=== PATIENT | female | born 1995 | race Caucasian/White ===

== ENCOUNTER 2020-09-22 09:29 | Outpatient (REF) | payer OTHER, SELFPAY ==
[2020-09-22 10:16] LABS: MANUAL DIFF FLAG NO
[2020-09-22 10:19] LABS: Basophils Percent Auto 0.8 % (0-2); Eosinophils Percent Auto 0.6 % (0-4); Hematocrit 39.5 % (37-47); Hemoglobin 13.1 g/dl (12.0-16.0); Imm Gran Abs Auto 0.01 X10*3/uL (0.00-0.03); Imm Gran Pct Auto 0.2 % (0.0-0.4); Lymphocytes Absolute Auto 1.7 X10*3/uL (1.2-4.9); Lymphocytes Percent Auto 32.2 % (20-40); Mean Corpuscular HGB Conc 33.2 g/dl (31.0-35.0); Mean Corpuscular Hemoglobin 29.9 pg (27.0-33.0); Mean Corpuscular Volume 90.2 fL (80-98); Mean Platelet Volume 10.6 fL (9.4-12.3); Monocytes Absolute Auto 0.4 X10*3/uL (0.1-1.2); Monocytes Percent Auto 7.7 % (2-11); Neutrophils Absolute Auto 3.1 X10*3/uL (2.0-8.3); Neutrophils Percent Auto 58.5 % (45-73); Platelet Count 259 X10*3/uL (160-400); Red Blood Count 4.38 X10*6/uL (4.20-5.50); Red Cell Distribution Width 12.1 % (11.0-16.0); White Blood Count 5.2 X10*3/uL (4.8-10.8)
[2020-09-22 10:42] LABS: Alanine Aminotransferase 61 U/L (0-31); Albumin Level 4.3 g/dL (3.5-5.0); Alkaline Phosphatase 78 U/L (39-117); Anion Gap 11 (12-20); Aspartate Amino Transferase 104 U/L (5-31); Bilirubin Total 0.4 mg/dL (0.0-1.0); Blood Urea Nitrogen 16 mg/dL (9-16); Calcium 9.6 mg/dL (8.4-10.2); Carbon Dioxide 24 mmol/L (22-29); Chloride 106 mmol/L (96-108); Estimated Glomerular Filt Rate > 60; Glucose Random 78 mg/dL (60-115); Sodium 137 mmol/L (135-145); Total Protein 6.9 g/dL (6.5-8.0)
[2020-09-22 11:06] LABS: Erythrocyte Sedimentation Rate 10 MM/HR (0-20)
[2020-09-23 22:03] LABS: Complement C3 82 mg/dL (83-193)
[2020-09-23 22:46] LABS: Prot Elec - Alpha1 0.3 g/dL (0.2-0.3); Prot Elec - Alpha2 0.8 g/dL (0.5-0.9); Prot Elec - Beta 1 0.4 g/dL (0.4-0.6); Prot Elec - Beta 2 0.3 g/dL (0.2-0.5); Prot Elec - Gamma 0.9 g/dL (0.8-1.7); Prot Elec - Total Protein 6.6 g/dL (6.1-8.1)
[2020-09-23 23:12] LABS: Immunoglobulin E 29 kU/L (<OR=114)
[2020-09-26 14:17] LABS: Transglutaminase IgA 1 U/mL
[2020-09-26 21:32] LABS: C1 Esterase Inhibitor 84 % (>=68)
[2020-09-26 22:22] LABS: Gliadin Deamidated IgA Ab 3 Units; Gliadin Deamidated IgG Ab 2 Units
== END 2020-09-22 09:30 | disposition home or self-care (01) ==
LOC: HO.LAB 09:29
PROVIDERS: PCP Hospitalist; Visit Provider Allergy & Immunology
DX: T78.3XXA Angioneurotic edema, initial encounter (principal)
CPT/HCPCS: 36415; 80053; 82785; 83516; 83520; 84155; 84165; 85025; 85652; 86160; 86161

== ENCOUNTER 2020-11-17 10:00 | Outpatient (REF) | payer OTHER, SELFPAY ==
[2020-11-17 11:37] LABS: Alanine Aminotransferase 40 U/L (0-31); Albumin Level 4.3 g/dL (3.5-5.0); Alkaline Phosphatase 69 U/L (39-117); Anion Gap 11 (12-20); Aspartate Amino Transferase 48 U/L (5-31); Bilirubin Total 0.4 mg/dL (0.0-1.0); Blood Urea Nitrogen 12 mg/dL (9-16); Calcium 9.7 mg/dL (8.4-10.2); Carbon Dioxide 25 mmol/L (22-29); Chloride 107 mmol/L (96-108); Estimated Glomerular Filt Rate > 60; Glucose Random 90 mg/dL (60-115); Potassium 4.4 mmol/L (3.3-5.1); Sodium 139 mmol/L (135-145); Total Protein 7.1 g/dL (6.5-8.0)
[2020-11-18 18:01] LABS: Immunoglobulin E 27 kU/L (<OR=114)
== END 2020-11-17 10:01 | disposition home or self-care (01) ==
LOC: HO.LAB 10:00
PROVIDERS: PCP Hospitalist; Visit Provider Allergy & Immunology
DX: T78.3XXA Angioneurotic edema, initial encounter (principal); T78.1XXA Other adverse food reactions, not elsewhere classified, initial encounter
CPT/HCPCS: 36415; 80053; 82785; 86003

== ENCOUNTER 2021-04-29 07:54 | Outpatient (REF) | payer OTHER, SELFPAY ==
[2021-04-29 08:38] LABS: Alanine Aminotransferase 39 U/L (0-31); Albumin Level 4.2 g/dL (3.5-5.0); Alkaline Phosphatase 64 U/L (39-117); Anion Gap 11 (12-20); Aspartate Amino Transferase 33 U/L (5-31); Bilirubin Total 0.7 mg/dL (0.0-1.0); Blood Urea Nitrogen 16 mg/dL (9-16); Calcium 9.7 mg/dL (8.4-10.2); Carbon Dioxide 25 mmol/L (22-29); Chloride 105 mmol/L (96-108); Estimated Glomerular Filt Rate > 60; Glucose Random 92 mg/dL (60-115); Potassium 4.1 mmol/L (3.3-5.1); Sodium 137 mmol/L (135-145); Total Protein 7.3 g/dL (6.5-8.0)
== END 2021-04-29 07:55 | disposition home or self-care (01) ==
LOC: HO.LAB 07:54
PROVIDERS: PCP Hospitalist; Visit Provider Hospitalist
DX: R74.8 Abnormal levels of other serum enzymes (principal)
CPT/HCPCS: 36415; 80053

== ENCOUNTER 2022-12-11 11:22 | Outpatient (AMB) | payer OTHER, SELFPAY ==
--- NOTE | 2022-12-11 11:49 | AM.OFFWIN_ITS ---
Intake Vital Signs 12/11/22 11:55 Weight 82.1 kg BP 120/80 Blood Pressure Location Lt brachial Position Sitting Pulse 93 Pulse Source Pulse Oximeter Temp 97.4 F Temp Source Temporal Artery Scan Pulse Oximetry (%) 100 Oxygen Delivery Method Room Air Intake Visit Reasons: EP, sore throat,cough,fatigue [phone] Intake Note: Patient here for sore throat, productive cough, congestion for about 3 days. Patient Tobacco Use Status: Never used Tobacco Allergies No Known Allergies Allergy (Verified 12/11/22 11:50) Do you need a note to return to daycare/school/sports/work: No HPI HPI Comments 2 History of Present Illness Details 1203 27-year-old female presents with fatigue, malaise, myalgias, sore throat, productive cough of thick yellow sputum going on for past 3 days, no known sick contacts. Denies chest pain, nausea, vomiting, abdominal pain, fevers, chills, headache, vision changes in dizziness. Physical exam benign Concerns for viral illness versus sinusitis versus bronchitis. Unlikely PE, pneumonia, peritonsillar retropharyngeal abscess, strep. No signs of threatened airway Plan steroids, inhaler, Augmentin. Educated patient on diagnosis and treatment plan, answered all question, patient verbalizes understanding. At this time patient will be discharged home, advised to return with new or worsening symptoms. Educated on worrisome signs and symptoms and when to return. At this time I feel comfortable discharge home. [facility] Medical History No pertinent past medical history Surgical History No pertinent past surgical history Family History Mother No problems noted. Father No problems noted. Social History Household Members: Spouse Housing: Apartment Alcohol intake: current Alcohol intake frequency: a few times a month Alcohol type: wine Patient Tobacco Use Status: Never used Tobacco Review of Systems Const Details: Constitutional : No Weight loss, No Fever, No Chills, + Fatigue, + Malaise ENT/Mouth : + sore throat, No Rhinorrhea Eyes: No Eye Pain, No Swelling, No Redness Cardiovascular : No Chest Pain, No SOB, No Dyspnea on Exertion, No Orthopnea, No Edema, No Palpitations Respiratory : + Cough, + Sputum, No Wheezing Gastrointestinal : No Nausea, No Vomiting, No Diarrhea, No Constipation, No abdominal Pain, No Hematochezia, No Melena Genitourinary : No Dysuria, No Urinary Frequency, No Hematuria, Musculoskeletal : No joint pain, No Myalgias, No Joint Swelling Skin : No Skin Lesions, No rash Neuro : No Weakness, No Numbness, No Dizziness, No Headache Psych : No Anxiety/Panic, No Depression All other systems reviewed and are negative All systems reviewed & are unremarkable except as noted in HPI and below Physical Exam Vital Signs: Last Vital Signs Temp 97.4 F 12/11/22 11:55 Pulse 93 12/11/22 11:55 BP 120/80 12/11/22 11:55 Pulse Ox 100 12/11/22 11:55 Oxygen Delivery Method Room Air 12/11/22 11:55 Vital signs stable Appearance: Alert.? Oriented X3.? No acute distress.? Head: Normocephalic, atraumatic, no step-offs or deformities Eyes: Pupils equal, round and reactive to light.? ENT: Pharynx normal.? Neck: Normal inspection.? Neck supple.? CVS: Normal heart rate and rhythm.? Pulses normal.? Respiratory: No respiratory distress.? Breath sounds normal.? Abdomen: Soft and nontender.? Skin: Skin warm and dry.? Normal skin color.? Normal skin turgor.? Extremities: No lower extremity edema.? No calf ttp. 5/5 strength to bilateral upper and lower extremities Neuro: Oriented X 3.? No motor deficit.? No sensory deficit. CN 2-12 intact Results AMB Rapid Strep AMB Rapid Strep Negative Last Edit by NI Griffin on 12/11/22 12:02 Results Reviewed Results Reviewed: Laboratory Last Values Strep Scn [facility] Negative 12/11/22 12:02 Assessment & Plan Assessment & Plan (1) Upper respiratory infection: Code(s): J06.9 - Acute upper respiratory infection, unspecified Plan Take your medications as prescribed. If you were prescribed antibiotics today, it is important that you take your medication to their entirety, do not skip any doses, do not finish them early. Follow-up with your primary care provider this week. Return to the emergency department with new or worsening symptoms. Such as fevers, chills, chest pain, shortness of breath, nausea, vomiting, dizziness, headache, vision changes, lethargy In case of emergency call 911 Orders: Orders BinaxNOW Covid-19 Ag Today J06.9 - Acute upper respiratory infection, unspecified AMB Rapid Strep Screen Today Z13.9 - Encounter for screening, unspecified Medications: New amoxicillin-pot clavulanate 875-125 mg 1 tab PO BID 20 tabs 0RF 10 days prednisone 20 mg PO DAILY 5 tabs 0RF 5 days albuterol sulfate 90 mcg/actuation 2 puffs inhalation Q6H PRN 6.7 grams 0RF shortness of breath or wheezing Coding Level of Care Code Est Pt Level 3 (70504) Diagnoses Upper respiratory infection J06.9
[2022-12-11 11:55] VITALS: BP 120/80; PULSE 93; TEMP 36.3; O2SAT 100
== END 2022-12-11 12:35 | disposition home or self-care (01) ==
PROVIDERS: PCP Hospitalist; Visit Provider Physician Assistant
DX: J06.9 Acute upper respiratory infection, unspecified (principal); J02.9 Acute pharyngitis, unspecified
CPT/HCPCS: 87880; 99213

== ENCOUNTER 2022-12-11 12:09 | Outpatient (REF) | payer OTHER, SELFPAY ==
[2022-12-11 12:29] LABS: Binax Now Covid-19 Ag Positive (Negative)
[2022-12-11 12:30] LABS: Binax Internal Control QC Valid; Binax Performed by: PAULP
== END 2022-12-11 12:10 | disposition home or self-care (01) ==
LOC: HO.HMGCLDS 12:09
PROVIDERS: PCP Hospitalist; Visit Provider Physician Assistant
DX: J06.9 Acute upper respiratory infection, unspecified (principal); Z20.822 Contact with and (suspected) exposure to COVID-19
CPT/HCPCS: 87811; C9803

== ENCOUNTER 2023-05-17 08:18 | Outpatient (AMB) | payer OTHER, SELFPAY ==
[2023-05-17 08:23] VITALS: BP 108/62; PULSE 82; O2SAT 97; BMI 32.9
--- NOTE | 2023-05-17 08:23 | A.OFFPC_ITS ---
Vital Signs 05/17/23 08:23 Height 5 ft 2 in Weight 180 lb BMI 32.9 BP 108/62 Blood Pressure Location Lt brachial Position Sitting Pulse 82 Pulse Source Pulse Oximeter Pulse Oximetry (%) 97 Oxygen Delivery Method Room Air Intake Visit Reasons: Transfer care/PE Intake Note: Patient is here for transfer of care, she has concern of muscle testing, would like to check iron and vitamin D. Allergies coconut Allergy (Severe, Uncoded 05/17/23 08:52) Anaphylaxis Tree nuts Allergy (Mild, Uncoded 05/17/23 08:52) tonsil swelling Medication List - Last Reconciled 05/17/23 by Maria Del Carmen Alicea, BI TECHNICAL LEAD- albuterol sulfate 90 mcg/actuation 2 puffs inhalation Q6H PRN epinephrine (EpiPen 2-Raza) 0.3 mg (0.3 mL) IM Q10M PRN 30 days prednisone 20 mg PO DAILY 5 days Tobacco use date assessed: 05/17/23 Dental Screening Dental Screen Date: 05/17/23 Did you have a dental visit in the last 12 months?: Yes Did you have a dental problem in the last 6 months where you did not have access to dental care?: No Was dental information given to patient?: Patient has dentist HPI HPI Comments History of Present Illness Details [age] old with elevated CPK, LFTs, Aldolase and low C3 complement, 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 Need referral Immunizations: UTD Derm - has a mole on back that she is worried about; bilat grandfather with skin cancer. Referral placed today Dental care - routine Eyes - no issues Diet - stable Mood - reports anxiety r/t job in the past, now resolved. Work as OT at [employer] Family hx: Mom alive pericarditis, DM2 Dad alive and well Siblings older sister w/ crohns, no other issues PGM and PGF both of cancer MGM - aneurysm, cardiac MGF unsure Here today for CPE Doing quite. She reports that she be referred to Rheumatology in the past were muscle biopsy was done to evaluate the elevated CPK, elevated aldolase, low C3 complement. Reports that the muscle biopsy was normal; mentioned a myopathy being the cause; she was then referred to [place] for genetics. However [facility] and therefore the referral never took place. When she works out to her she feels really sick for 1 week like she can not do anything. She is interested in a [place] [facility] [place] further evaluation [facility] Medical History No pertinent past medical history Surgical History No pertinent past surgical history Family History Mother No problems noted. Father No problems noted. Social History Household Members: Spouse Housing: Apartment Alcohol intake: current Alcohol intake frequency: a few times a month Alcohol type: wine Patient Tobacco Use Status: Never used Tobacco e-Cigarette/Vaping Use: Never Used service: No Current occupational status: employed Current occupation: occupational therapist Cognitive needs: No Hearing needs: No Vision needs: No Questionnaire PHQ-9 Over the last 2 weeks, how often have you been bothered by any of the following problems? 1. Little interest or pleasure in doing things: not at all 2. Feeling down, depressed, or hopeless: not at all 3. Trouble falling or staying asleep, or sleeping too much: not at all 4. Feeling tired or having little energy: several days 5. Poor appetite or overeating: not at all 6. Feeling bad about yourself - or that you are a failure or have let yourself or your family down: not at all 7. Trouble concentrating on things, such as reading the newspaper or watching television: not at all 8. Moving or speaking so slowly that other people could have noticed. Or the opposite - being so fidgety or restless that you have been moving around a lot more than usual: not at all 9. Thoughts that you would be better off or of hurting yourself in some way: not at all Total score: 1 Depression Screening Interpretation: Negative Depression Screening Done: Yes 97551 - PHQ-9 Billing: Yes Source: Developed by Drs. Fransisco Alcantar, Brent Miranda and colleagues, with an educational jacobo from [employer]. Thrive Questionnaire Date Thrive assessed: 05/17/23 I am a: Patient What is your living situation today?: I have a steady place to live Within the past 12 months, did the food you bought not last and you didn't have the money to get more?: Never true Within the past 12 months, did you worry whether your food would run out before you got money to buy more?: Never true Do you have trouble paying for medicines?: No Do you have trouble getting transportation to medical appointments?: No Do you have trouble paying your heating and electricity bill?: No Do you have trouble taking care of your child, family member or friend?: No Do you have trouble with day-to-day activities such as bathing, preparing meals, shopping, managing finances, etc.?: No Are you currently unemployed and looking for a job?: No Are you interested in more education?: No Please select the resources that you would like help with: None Currently or been in a relationship where the following occur: no concerns reported THRIVE Score: 0 AUDIT C Alcohol Use Questionnaire (AUDIT-C) 1. How often do you have a drink containing alcohol?: Monthly or less 2. How many drinks containing alcohol do you have on a typical day when you are drinking?: 1 or 2 3. How often do you have six or more drinks on one occasion?: Never Total Score: 1 Score Reviewed/Action Taken: No EVELIA-7 AMB Questionnaire EVELIA-7 Date EVELIA - 7 assessed: 05/17/23 Feeling nervous, anxious, or on edge: 0 = Not at all Not being able to stop or control worryin = Not at all Worrying too much about different things: 0 = Not at all Trouble relaxin = Not at all Being so restless that it is hard to sit still: 0 = Not at all Becoming easily annoyed or irritable: 0 = Not at all Feeling afraid as if something awful might happen: 0 = Not at all Total EVELIA-7 score (0-4 normal; 5-9 mild; 10-14 moderate; 15-21 severe): 0 Source: Developed by Whit Nina Kurt Kroenke and colleagues, with an educational jacobo from [employer]. EVELIA-7 Assessment Billing EVELIA-7 Assessment Tool: EVELIA-7 Assessment 77935 Review of Systems Const Details: Constitutional: [Denies} fever. Skin: Denies rash. Eye: Denies eye pain. ENMT: Denies sore throat and nasal congestion. Respiratory: Denies shortness of breath and cough. Gastrointestinal: Denies nausea, vomiting or abdominal pain. Cardiovascular: Denies chest pain and syncope. Genitourinary: Denies dysuria. Musculoskeletal: Denies back pain and extremity pain. Neurologic: Denies headaches, confusion, and weakness. Psychiatric: Denies suicidal thoughts and substance abuse. Allergy/ Immunologic: Denies impaired immunity. Physical exam (Primary Care) Vital Signs: Last Vital Signs Pulse 82 05/17/23 08:23 BP 108/62 05/17/23 08:23 Pulse Ox 97 05/17/23 08:23 Oxygen Delivery Method Room Air 05/17/23 08:23 BMI result Body Mass Index 32.9 Tobacco/Smoking Status: Tobacco use Status Tobacco use date assessed 05/17/23 05/17/23 08:34 Patient Tobacco Use Status Never used Tobacco 05/17/23 08:34 e-Cigarette/Vaping Use Never Used 05/17/23 08:34 PHQ-9: PHQ-9 Score PHQ-9: Total score 1 05/17/23 13:23 Depression Screening Interpretation: Negative Thrive Assessment: Date of Thrive Assessment Date Thrive assessed 05/17/23 05/17/23 08:34 Currently or been in a relationship where the following occur: no concerns reported Const Other: General: Well developed, well nourished, in no acute distress. Appears stated age. Head: Normocephalic, atraumatic. Eyes: Pupils are equal, round and reactive to light and accommodation. Conjunctivae are clear. Vision grossly normal. Ears: TMs clear AU, EACS WNL Nose: Patent, without discharge. Mouth: There are no ulcers or lesions noted. No inflammation, no post nasal drip, no plaques nor exudates. Neck: Supple, no adenopathy or thyromegaly. Lungs: Clear to auscultation bilaterally. No rales, rhonchi or wheeze noted. Good air flow in all uribe. Heart: Regular rate and rhythm. No murmurs, click, rubs or gallops are noted. Abdomen: Bowel sounds present in all quadrants. The abdomen is soft, nontender, with no masses or organomegaly noted. No hernias are noted. Musculoskeletal: Joints are nontender, without swelling, redness, or effusions. Range of motion is observed to be normal. Pulses: Peripheral pulses are equal and palpable bilaterally. Extremities: No clubbing, cyanosis nor edema is noted. Neurologic: Gait and station normal. Cranial Nerves 2-12 intact. Motor strength grossly symmetrical and intact. No sensory loss. Balance normal. Skin: No rashes, ulcers, or lesions noted. Turgor is good. Skin color is good. Hair and nails are without abnormalities. Psych: Normal eye contact, affect and mood appropriate, and normal interactions. Patient is alert and appropriate to context. Extremities: No clubbing, cyanosis or edema. Assessment and Plan Assessment & Plan (1) Physical exam, annual: Code(s): Z00.00 - Encounter for general adult medical examination without abnormal findings Plan: Health screenings for women ages 18 to 39 You should visit your health care provider from time to time, even if you are healthy. The purpose of these visits is to: Screen for medical issues Assess your risk for future medical problems Encourage a healthy lifestyle Update vaccinations and other preventive care services Help you get to know your provider in case of an illness Information Even if you feel fine, you should still see your provider for regular checkups. These visits can help you avoid problems in the future. For example, the only way to find out if you have high blood pressure is to have it checked regularly. High blood sugar and high cholesterol levels also may not have any symptoms in the early stages. A simple blood test can check for these conditions. There are specific times when you should see your provider or receive specific health screenings. The [place] Preventive Services Task Force publishes a list of recommended screenings. Below are screening guidelines for women ages 18 to 39. BLOOD PRESSURE SCREENING Your blood pressure should be checked at least once every 3 to 5 years if: Your blood pressure is in the normal range (top number less than 120 mm Hg and bottom number less than 80 mm Hg) You don't have risk factors for high blood pressure Ask your provider if you need your blood pressure checked more often if: The top number is 120 to 129 mm Hg or the bottom number is 70 to 79 mm Hg You have diabetes, heart disease, kidney problems, are overweight, or have certain other health conditions You have a first-degree relative with high blood pressure You are Black You had high blood pressure during a If the top number is 130 mm Hg or greater or the bottom number is 80 mm Hg or greater, this is considered stage 1 hypertension. Schedule an appointment with your provider to learn how you can reduce your blood pressure. Watch for blood pressure screenings in your area. Ask your provider if you can stop in to have your blood pressure checked. BREAST CANCER SCREENING Experts do not agree about the benefits of breast self-exams in finding breast cancer or saving lives. Talk to your provider about what is best for you. A screening mammogram is not recommended for most women under age 40. Your provider may discuss and recommend mammograms, MRI scans, or ultrasounds if you have an increased risk for breast cancer, such as: A mother or sister who had breast cancer at a young age (most often starting s creening earlier than the age the close relative was diagnosed) You carry a high-risk genetic marker CERVICAL CANCER SCREENING Cervical cancer screening should start at age 21 years unless your provider advises otherwise. After the first test: Women ages 21 through 29 should have a Pap test every 3 years. Exoprts do not agree on whether HPV testing is recommended for this age group. Women ages 30 through 65 should be screened with either a Pap test every 3 years or the HPV test every 5 years or both tests every 5 years (called cotesting ). Women who have been treated for precancer (cervical dysplasia) should continue to have Pap tests for 20 years after treatment or until age 65, whichever is longer. If you have had your uterus and cervix removed (total hysterectomy), and you have not been diagnosed with cervical cancer or precancer (high grade cervical neoplasia), you do not need cervical cancer screening. CHOLESTEROL SCREENING Cholesterol screening should begin at: Age 45 for women with no known risk factors for coronary heart disease Age 20 for women with known risk factors for coronary heart disease Repeat cholesterol screening should take place: Every 5 years for women with normal cholesterol levels More often if changes occur in lifestyle (including weight gain and diet) More often if you have diabetes, heart disease, kidney problems, or certain other conditions DIABETES SCREENING You should be screened for diabetes starting at age 35 and then repeated every 3 years if you have no risk factors for diabetes. Screening may need to start earlier and be repeated more often if you have other risk factors for diabetes, such as: You have a first degree relative with diabetes. You are overweight or have obesity. You have high blood pressure, prediabetes, or a history of heart disease. Screening for diabetes should be done if you are planning to become and you are overweight and have other risk factors such as high blood pressure. DENTAL EXAM Go to the dentist once or twice every year for an exam and cleaning. Your dentist will evaluate if you need more frequent visits. EYE EXAM Have an eye exam every 5 to 10 years before age 40. If you have vision problems, have an eye exam every 2 years or more often if recommended by your provider. You should have an eye exam that includes an examination of your retina (back of your eye) at least every year if you have diabetes. IMMUNIZATIONS Commonly needed vaccines include: Flu shot: get one every year. COVID-19 vaccine: ask your provider what is best for you. Tetanus-diphtheria and acellular pertussis (Tdap) vaccine: have one at or after age 19 as one of your tetanus-diphtheria vaccines if you did not receive it as an adolescent. Tetanus-diphtheria: have a booster (or Tdap) every 10 years. Varicella vaccine: receive 2 doses if you never had chickenpox or the varicella vaccine. Hepatitis B vaccine: receive 2, 3, or 4 doses, depending on your exact circumstances. Measles, mumps, and rubella (MMR) vaccine: receive 1 to 2 doses if you are not already immune to MMR. Your provider can tell you if you are immune. Ask your provider about the human papillomavirus (HPV) vaccine if: You have not received the HPV vaccine in the past You have not completed the full vaccine series (you should catch up on this shot) Ask your provider if you should receive other immunizations if you have certain health problems that increase your risk for some diseases such as pneumonia. INFECTIOUS DISEASE SCREENING Women who are sexually active should be screened for chlamydia and gonorrhea up until age 25. Women 25 years and older should be screened for chlamydia and gonorrhea if at high risk. Screening for hepatitis C: All adults ages 18 to 79 should get a one-time test for hepatitis C. people should be screened at every . Screening for human immunodeficiency virus (HIV): All people ages 15 to 65 should get a one-time test for HIV. Depending on your lifestyle and medical history, you may also need to be screened for infections such as syphilis and HIV, as well as other infections. PHYSICAL EXAM All adults should visit their provider from time to time, even if they are healthy. The purpose of these visits is to: Screen for disease Assess your risk of future medical problems Encourage a healthy lifestyle Update your vaccinations and other preventive care services Maintain a relationship with a provider in case of an illness Your height, weight, and BMI should be checked at every exam. During your exam, your provider may ask you about: Depression and anxiety Diet and exercise Alcohol and tobacco use Safety issues, such as using seat belts, smoke detectors, and intimate partner violence Your medicines and risk for interactions SKIN SELF-EXAM Your provider may check your skin for signs of skin cancer, especially if you're at high risk, such as if you: Have had skin cancer before Have close relatives with skin cancer Have a weakened immune system OTHER SCREENING Talk with your provider about colon cancer screening if you have a strong family history of colon cancer or polyps, or if you have had inflammatory bowel disease or polyps yourself. Routine bone density screening of women under 40 is not recommended. (2) Pap smear for cervical cancer screening: Code(s): Z12.4 - Encounter for screening for malignant neoplasm of cervix (3) Laboratory tests ordered as part of a complete physical exam (CPE): Code(s): Z00.00 - Encounter for general adult medical examination without abnormal findings (4) Elevated liver enzymes: Code(s): R74.8 - Abnormal levels of other serum enzymes (5) Low serum complement C3: Code(s): R77.8 - Other specified abnormalities of plasma proteins (6) Elevated aldolase level: Code(s): R74.8 - Abnormal levels of other serum enzymes (7) Elevated CPK: Code(s): R74.8 - Abnormal levels of other serum enzymes Orders: Orders TSH reflex Free T4 Today R74.8 - Abnormal levels of other serum enzymes, R77.8 - Other specified abnormalities of plasma proteins, Z00.00 - Encounter for general adult medical examination without abnormal findings Comprehensive Gravity. Panel Fast Today R74.8 - Abnormal levels of other serum enzymes, R77.8 - Other specified abnormalities of plasma proteins, Z00.00 - Encounter for general adult medical examination without abnormal findings Lipid Panel Today R74.8 - Abnormal levels of other serum enzymes, R77.8 - Other specified abnormalities of plasma proteins, Z00.00 - Encounter for general adult medical examination without abnormal findings IRON PROFILE Today R74.8 - Abnormal levels of other serum enzymes, R77.8 - Other specified abnormalities of plasma proteins, Z00.00 - Encounter for general adult medical examination without abnormal findings Creatine Kinase Total Today R74.8 - Abnormal levels of other serum enzymes, R77.8 - Other specified abnormalities of plasma proteins, Z00.00 - Encounter for general adult medical examination without abnormal findings Complete Blood Count no Diff Today R74.8 - Abnormal levels of other serum enzymes, R77.8 - Other specified abnormalities of plasma proteins, Z00.00 - Encounter for general adult medical examination without abnormal findings Microalbumin, Random (w Creat) Today R74.8 - Abnormal levels of other serum en zymes, R77.8 - Other specified abnormalities of plasma proteins, Z00.00 - Encounter for general adult medical examination without abnormal findings Vitamin D 1,25 dihydroxy Today R74.8 - Abnormal levels of other serum enzymes, R77.8 - Other specified abnormalities of plasma proteins, Z00.00 - Encounter for general adult medical examination without abnormal findings Aldolase Today R74.8 - Abnormal levels of other serum enzymes, R77.8 - Other specified abnormalities of plasma proteins, Z00.00 - Encounter for general adult medical examination without abnormal findings Complement C3 Today R74.8 - Abnormal levels of other serum enzymes, R77.8 - Other specified abnormalities of plasma proteins, Z00.00 - Encounter for general adult medical examination without abnormal findings UA and rflx microscopic Today R74.8 - Abnormal levels of other serum enzymes, R77.8 - Other specified abnormalities of plasma proteins, Z00.00 - Encounter for general adult medical examination without abnormal findings Referrals [facility] [employer] [facility] Referral Z12.4 - Encounter for screening for malignant neoplasm of cervix Genetics Referral R74.8 - Abnormal levels of other serum enzymes, R77.8 - Other specified abnormalities of plasma proteins Dermatology Referral Z12.83 - Encounter for screening for malignant neoplasm of skin Medications: Refilled epinephrine (EpiPen 2-Raza) for 2 doses 0.3 mg (0.3 mL) IM Q10M PRN 2 ea 2RF anaphylaxis 30 days Coding Level of Care Code Est Pt Prev Care 18-39y(72175) Diagnoses Physical exam, annual Z00.00 Pap smear for cervical cancer screening Z12.4 Laboratory tests ordered as part of a complete physical exam (CPE) Z00.00 Elevated liver enzymes R74.8 Low serum complement C3 R77.8 Elevated aldolase level R74.8 Elevated CPK R74.8 Additional Codes EVELIA-7 Assessment Billing - EVELIA-7 Assessment Tool: EVELIA-7 Assessment [id number] ([id number])
== END 2023-05-17 09:13 | disposition home or self-care (01) ==
PROVIDERS: PCP Hospitalist; Visit Provider Nurse Practitioner Family
DX: Z00.00 Encounter for general adult medical examination without abnormal findings (principal); Z12.4 Encounter for screening for malignant neoplasm of cervix; R74.8 Abnormal levels of other serum enzymes; R77.8 Other specified abnormalities of plasma proteins
CPT/HCPCS: 99395

== ENCOUNTER 2023-05-31 07:02 | Outpatient (REF) | payer BC, SELFPAY ==
[2023-05-31 12:06] LABS: Hematocrit 40.5 % (37.0-47.0); Hemoglobin 13.1 g/dl (12.0-16.0); Mean Corpuscular HGB Conc 32.3 g/dl (31.0-35.0); Mean Corpuscular Volume 89.8 fL (80.0-98.0); Mean Platelet Volume 10.6 fL (9.4-12.3); Platelet Count 285 X10*3/uL (160-400); Red Blood Count 4.51 X10*6/uL (4.20-5.50); Red Cell Distribution Width 12.1 % (11.0-16.0)
[2023-05-31 12:07] LABS: Alanine Aminotransferase 43 U/L (0-31); Albumin Level 4.3 g/dL (3.5-5.0); Alkaline Phosphatase 62 U/L (39-117); Anion Gap 13 (12-20); Aspartate Amino Transferase 51 U/L (5-31); Bilirubin Total 0.3 mg/dL (0.0-1.0); Blood Urea Nitrogen 13 mg/dL (9-16); Calcium 9.5 mg/dL (8.4-10.2); Carbon Dioxide 26 mmol/L (22-29); Chloride 106 mmol/L (96-108); Cholesterol 168 mg/dL (<200); Estimated Glomerular Filt Rate > 60; Glucose Fasting 89 mg/dL (60-99); HDL Cholesterol 49 mg/dL (>40); Iron 67 mcg/dL (30-160); LDL Cholesterol Calculated 102 mg/dL (<100); Percent Iron Saturation 26 % (15-50); Potassium 3.8 mmol/L (3.3-5.1); Sodium 141 mmol/L (135-145); TSH reflex Free T4 1.55 uIU/mL (0.32-4.0); Total Iron Binding Capacity 255 mcg/dL (228-428); Total Protein 7.3 g/dL (6.5-8.0); Triglycerides 85 mg/dL (<150); Unsaturated Iron Binding 188 ug/dL
[2023-06-03 10:59] LABS: Complement C3 126 mg/dL (83-193)
[2023-06-05 06:12] LABS: Aldolase 35.3 U/L (<=8.1); VITAMIN D (1,25 OH) D3 40 pg/mL; Vit D (1,25-Dihydroxy) Total 50 pg/mL (18-72); Vitamin D (1,25 OH) D2 10 pg/mL
== END 2023-05-31 07:03 | disposition home or self-care (01) ==
LOC: HO.HMGCLDS 07:02
PROVIDERS: PCP Nurse Practitioner Family; Visit Provider Nurse Practitioner Family
DX: Z00.00 Encounter for general adult medical examination without abnormal findings (principal); R74.8 Abnormal levels of other serum enzymes; R77.8 Other specified abnormalities of plasma proteins
CPT/HCPCS: 36415; 80053; 80061; 82085; 82550; 82652; 83540; 84443; 85027; 86160

== ENCOUNTER 2024-05-18 07:53 | Outpatient (AMB) | payer OTHER, SELFPAY ==
--- NOTE | 2024-05-18 07:54 | A.OFFPC_ITS ---
Vital Signs 05/18/24 08:01 Height 5 ft 1 in Weight 169 lb 6 oz BMI 32.0 BP 118/62 Blood Pressure Location Lt brachial Position Sitting Pulse 65 Pulse Source Auscultation Pulse Oximetry (%) 99 Oxygen Delivery Method Room Air Intake Visit Reasons: PE Allergies coconut Allergy (Severe, Uncoded 05/18/24 07:55) Anaphylaxis Tree nuts Allergy (Mild, Uncoded 05/18/24 07:55) tonsil swelling Medication List - Last Reconciled 05/18/24 by Maria Del Carmen Alicea [facility] albuterol sulfate 90 mcg/actuation 2 puffs inhalation Q6H PRN epinephrine (EpiPen 2-Raza) 0.3 mg (0.3 mL) IM Q10M PRN 30 days Tobacco use date assessed: 05/18/24 Dental Screening Dental Screen Date: 05/18/24 Did you have a dental visit in the last 12 months?: Yes Was dental information given to patient?: Patient has dentist HPI HPI Comments History of Present Illness Details 28 y/o with with elevated CPK, LFTs, Ald olase and low C3 complement, 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 [facility] Immunizations: UTD, will get Flu today Derm - has a mole on back that she is worried about; bilat grandfather with skin cancer. Referral placed 05/2023 Dental care - routine Eyes - no issues Diet - stable Mood - no anxiety Work as OT Family hx: Mom alive pericarditis, DM2 Dad alive and well Siblings older sister w/ crohns, no other issues PGM and PGF both of cancer MGM - aneurysm, cardiac MGF unsure Surgery: muscle bx No hospital or ED visits Social: live w/ . The patient is a 28-year-old female presenting for CPE. 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 There has been a recent referral for additional diagnostic testing, including an electromyography (EMG) scheduled for June and genetic testing performed the previous week, although results are pending. Previous symptoms associated with the myopathy include exercise intolerance, which has seen improvement with the intake of Gatorade prior to physical activity. The patient reported having undergone a muscle biopsy in the past. ROS: - Integumentary: Denies new skin lesions . - Ophthalmologic: Denied vision problems or use of glasses. - Psychological: Reports improved mood; denies current feelings of anxiety or depression. - Respiratory: Denies daily inhaler use. Exam General: Well developed, well nourished, in no acute distress. Appears stated age. Head: Normocephalic, atraumatic. Eyes: Pupils are equal, round and reactive to light and accommodation. Conjunctivae are clear. Vision grossly normal. Ears: TMs clear AU, EACS WNL Nose: Patent, without discharge. Mouth: There are no ulcers or lesions noted. No inflammation, no post nasal drip, no plaques nor exudates. Neck: Supple, no adenopathy or thyromegaly. Lungs: Clear to auscultation bilaterally. No rales, rhonchi or wheeze noted. Good air flow in all uribe. Heart: Regular rate and rhythm. No murmurs, click, rubs or gallops are noted. Abdomen: Bowel sounds present in all quadrants. The abdomen is soft, nontender, with no masses or organomegaly noted. No hernias are noted. Musculoskeletal: Joints are nontender, without swelling, redness, or effusions. Range of motion is observed to be normal. Pulses: Peripheral pulses are equal and palpable bilaterally. Extremities: No clubbing, cyanosis nor edema is noted. Neurologic: Gait and station normal. Cranial Nerves 2-12 intact. Motor strength grossly symmetrical and intact. No sensory loss. Balance normal. Skin: No rashes, ulcers, or lesions noted. Turgor is good. Skin color is good. Hair and nails are without abnormalities. Psych: Normal eye contact, affect and mood appropriate, and normal interacti ons. Patient is alert and appropriate to context. 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 We talked about the effectiveness of pre-exercise Gatorade intake. I explained the need for regular monitoring of liver function due to past elevated enzyme levels. We reviewed the necessity of continuing her current inhaler regimen for asthma management. I advised the completion of her overdue Pap smear and emphasized the importance of dermatological evaluation given her family history. I discussed the administration of the flu shot today and encouraged her to continue self- monitoring for breast and skin changes. Defer labs today as some just done by [facility] [place]. Results n/a to me @ this time. Plan: - Continue monitoring metabolic myopathy ; pending EMG and genetic testing results. - Schedule referral and follow-up for Pa p smear as previous appointment was canceled. - Administer the influenza vaccine as ag nati. - Ensure dermatological consultation for mole assessment due to family history of skin cancer. - Monitor asthma; no changes in current medication as symptoms are currently well managed. - Continue anxiety management measures a s current screenings are negative. Patient was informed and verbally consented to the use of an ambient scribe for clinic note documentation during this visit. RTO 1 YEAR CPE, SOONER PRN PFSH Medical History No pertinent past medical history Surgical History No pertinent past surgical history Family History Mother No problems noted. Father No problems noted. Social History Household Members: Spouse Housing: Apartment Alcohol intake: current Alcohol intake frequency: a few times a month Alcohol type: wine Patient Tobacco Use Status: Never used Tobacco e-Cigarette/Vaping Use: Never Used service: No Current occupational status: employed Current occupation: occupational therapist Cognitive needs: No Hearing needs: No Vision needs: No Questionnaire PHQ-9 Over the last 2 weeks, how often have you been bothered by any of the following problems? 1. Little interest or pleasure in doing things: not at all 2. Feeling down, depressed, or hopeless: not at all 3. Trouble falling or staying asleep, or sleeping too much: not at all 4. Feeling tired or having little energy: not at all 5. Poor appetite or overeating: not at all 6. Feeling bad about yourself - or that you are a failure or have let yourself or your family down: not at all 7. Trouble concentrating on things, such as reading the newspaper or watching television: not at all 8. Moving or speaking so slowly that other people could have noticed. Or the opposite - being so fidgety or restless that you have been moving around a lot more than usual: not at all 9. Thoughts that you would be better off or of hurting yourself in some way: not at all Total score: 0 Depression Screening Interpretation: Negative Depression Screening Done: Yes 88057 - PHQ-9 Billing: Yes Source: Developed by Drs. Fransisco Alcantar, Whit Corona, Brent Morales and colleagues, with an educational jacobo from [employer]. Thrive Questionnaire Date Thrive assessed: 05/17/24 I am a: Patient What is your living situation today?: I have a steady place to live Within the past 12 months, did the food you bought not last and you didn't have the money to get more?: Never true Within the past 12 months, did you worry whether your food would run out before you got money to buy more?: Never true Do you have trouble paying for medicines?: No Do you have trouble getting transportation to medical appointments?: No Do you have trouble paying your heating and electricity bill?: No Do you have trouble taking care of your child, family member or friend?: No Do you have trouble with day-to-day activities such as bathing, preparing meals, shopping, managing finances, etc.?: No Are you currently unemployed and looking for a job?: No Are you interested in more education?: No Please select the resources that you would like help with: None Currently or been in a relationship where the following occur: No concerns r eported THRIVE Score: 0 AUDIT C Alcohol Use Questionnaire (AUDIT-C) 1. How often do you have a drink containing alcohol?: Monthly or less 2. How many drinks containing alcohol do you have on a typical day when you are drinking?: 1 or 2 3. How often do you have six or more drinks on one occasion?: Never Total Score: 1 Score Reviewed/Action Taken: Yes EVELIA-7 AMB Questionnaire EVELIA-7 Date EVELIA - 7 assessed: 05/18/24 Feeling nervous, anxious, or on edge: 0 = Not at all Not being able to stop or control worryin = Not at all Worrying too much about different things: 0 = Not at all Trouble relaxin = Not at all Being so restless that it is hard to sit still: 0 = Not at all Becoming easily annoyed or irritable: 0 = Not at all Feeling afraid as if something awful might happen: 0 = Not at all Total EVELIA-7 score (0-4 normal; 5-9 mild; 10-14 moderate; 15-21 severe): 0 Source: Developed by Drs. Fransisco Alcantar, Whit Corona, Brent Morales and colleagues, with an educational jacobo from [employer]. EVELIA-7 Assessment Billing EVELIA-7 Assessment Tool: EVELIA-7 Assessment 85878 ACT Questionnaire In the past 4 weeks, how much of the time did your asthma keep you from getting as much done at work, school or at home?: None of the time During the past 4 weeks, how often have you had shortness of breath?: Not at all During the past 4 weeks, how often did your asthma symptoms wake you up at night or earlier than usual in the morning?: Not at all During the past 4 weeks, how often have you had to use your rescue inhaler or nebulizer medication?: Not at all ACT Interpretation: Negative Score: 20 Physical exam (Primary Care) Vital Signs: Last Vital Signs Pulse 65 05/18/24 08:01 BP 118/62 05/18/24 08:01 Pulse Ox 99 05/18/24 08:01 Oxygen Delivery Method Room Air 05/18/24 08:01 BMI result Body Mass Index 32.0 Tobacco/Smoking Status: Tobacco use Status Tobacco use date assessed 05/18/24 05/18/24 07:55 Patient Tobacco Use Status Never used Tobacco 05/18/24 07:54 e-Cigarette/Vaping Use Never Used 05/18/24 07:54 PHQ-9: PHQ-9 Score PHQ-9: Total score 0 05/18/24 08:02 Depression Screening Interpretation: Negative Thrive Assessment: Date of Thrive Assessment Date Thrive assessed 05/17/24 05/18/24 07:54 Currently or been in a relationship where the following occur: No concerns reported Coding Level of Care Code Est Pt Prev Care 18-39y(82376) Diagnoses Physical exam, annual Z00.00 Low serum complement C3 R77.8 Elevated liver enzymes R74.8 Elevated CPK R74.8 Elevated aldolase level R74.8 Family history of skin cancer Z80.8 Atypical mole D22.9 Pap smear for cervical cancer screening Z12.4 Influenza vaccination administered at current visit Z23 History of anaphylaxis Z87.892 Additional Codes Asthma Control Questionnaire - ACT Interpretation: Negative ([id number]) EVELIA-7 Assessment Billing - EVELIA-7 Assessment Tool: EVELIA-7 Assessment 32554 ([id number]) PHQ-9 - 60756 - PHQ-9 Billing: Yes ([id number]) Assessment & Plan Assessment & Plan (1) Physical exam, annual: Code(s): Z00.00 - Encounter for general adult medical examination without abnormal findings Category: Medical (2) Low serum complement C3: Code(s): R77.8 - Other specified abnormalities of plasma proteins Category: Medical (3) Elevated liver enzymes: Code(s): R74.8 - Abnormal levels of other serum enzymes Category: Medical (4) Elevated CPK: Code(s): R74.8 - Abnormal levels of other serum enzymes Category: Medical (5) Elevated aldolase level: Code(s): R74.8 - Abnormal levels of other serum enzymes Category: Medical (6) Family history of skin cancer: Comment: paternal grandfather Code(s): Z80.8 - Family history of malignant neoplasm of other organs or systems Category: Medical (7) Atypical mole: Code(s): D22.9 - Melanocytic nevi, unspecified Category: Medical (8) Pap smear for cervical cancer screening: Code(s): Z12.4 - Encounter for screening for malignant neoplasm of cervix Category: Medical (9) Influenza vaccination administered at current visit: Code(s): Z23 - Encounter for immunization (10) History of anaphylaxis: Code(s): Z87.892 - Personal history of anaphylaxis Category: Medical Plan . Orders: Referrals [employer] Referral Z12.4 - Encounter for screening for malignant neoplasm of cer vix Dermatology Referral D22.9 - Melanocytic nevi, unspecified, Z80.8 - Family history of malignant neoplasm of other organs or systems Patient Instructions: - Follow-up on results of genetic tests and scheduled EMG. - Complete Pap smear and await follow-up call for appointment scheduling. - Contact body bumper for mole evaluation. - Receive flu shot today. - Continue with routine asthma management and use EpiPen as needed. - Monitor for any changes in mood or development of new symptoms, and seek early consultation if concerned. - Maintain balanced nutrition and exercise regime. - Ensure regular dermatological assessments given family history of skin cancer. Health screenings for women You should visit your health care provider from time to time, even if you are healthy. The purpose of these visits is to: Screen for medical issues Assess your risk for future medical problems Encourage a healthy lifestyle Update vaccinations and other preventive care services Help you get to know your provider in case of an illness Information Even if you feel fine, you should still see your provider for regular checkups. These visits can help you avoid problems in the future. For example, the only way to find out if you have high blood pressure is to have it checked regularly. High blood sugar and high cholesterol levels also may not have any symptoms in the early stages. A simple blood test can check for these conditions. There are specific times when you should see your provider or receive specific health screenings. The [place] Preventive Services Task Force publishes a list of recommended screenings. Below are screening guidelines for women ages 18 to 39. BLOOD PRESSURE SCREENING Your blood pressure should be checked at least once every 3 to 5 years if: Your blood pressure is in the normal range (top number less than 120 mm Hg and bottom number less than 80 mm Hg) You don't have risk factors for high blood pressure Ask your provider if you need your blood pressure checked more often if: The top number is 120 to 129 mm Hg or the bottom number is 70 to 79 mm Hg You have diabetes, heart disease, kidney problems, are overweight, or have certain other health conditions You have a first-degree relative with high blood pressure You are Black You had high blood pressure during a If the top number is 130 mm Hg or greater or the bottom number is 80 mm Hg or greater, this is considered stage 1 hypertension. Schedule an appointment with your provider to learn how you can reduce your blood pressure. Watch for blood pressure screenings in your area. Ask your provider if you can stop in to have your blood pressure checked. BREAST CANCER SCREENING Experts do not agree about the benefits of breast self-exams in finding breast cancer or saving lives. Talk to your provider about what is best for you. A screening mammogram is not recommended for most women under age 40. Your provider may discuss and recommend mammograms, MRI scans, or ultrasounds if you have an increased risk for breast cancer, such as: A mother or sister who had breast cancer at a young age (most often starting screening earlier than the age the close relative was diagnosed) You carry a high-risk genetic marker CERVICAL CANCER SCREENING Cervical cancer screening should start at age 21 years unless your provider advises otherwise. After the first test: Women ages 21 through 29 should have a Pap test every 3 years. Exoprts do not agree on whether HPV testing is recommended for this age group. Women ages 30 through 65 should be screened with either a Pap test every 3 years or the HPV test every 5 years or both tests every 5 years (called cotesting ). Women who have been treated for precancer (cervical dysplasia) should continue to have Pap tests for 20 years after treatment or until age 65, whichever is longer. If you have had your uterus and cervix removed (total hysterectomy), and you have not been diagnosed with cervical cancer or precancer (high grade cervical neoplasia), you do not need cervical cancer screening. CHOLESTEROL SCREENING Cholesterol screening should begin at: Age 45 for women with no known risk factors for coronary heart disease Age 20 for women with known risk factors for coronary heart disease Repeat cholesterol screening should take place: Every 5 years for women with normal cholesterol levels More often if changes occur in lifestyle (including weight gain and diet) More often if you have diabetes, heart disease, kidney problems, or certain other conditions DIABETES SCREENING You should be screened for diabetes starting at age 35 and then repeated every 3 years if you have no risk factors for diabetes. Screening may need to start earlier and be repeated more often if you have other risk factors for diabetes, such as: You have a first degree relative with diabetes. You are overweight or have obesity. You have high blood pressure, prediabetes, or a history of heart disease. Screening for diabetes should be done if you are planning to become and you are overweight and have other risk factors such as high blood pressure. DENTAL EXAM Go to the dentist once or twice every year for an exam and cleaning. Your dentist will evaluate if you need more frequent visits. EYE EXAM Have an eye exam every 5 to 10 years before age 40. If you have vision problems, have an eye exam every 2 years or more often if recommended by your provider. You should have an eye exam that includes an examination of your retina (back of your eye) at least every year if you have diabetes. IMMUNIZATIONS Commonly needed vaccines include: Flu shot: get one every year. COVID-19 vaccine: ask your provider what is best for you. Tetanus-diphtheria and acellular pertussis (Tdap) vaccine: have one at or after age 19 as one of your tetanus-diphtheria vaccines if you did not receive it as an adolescent. Tetanus-diphtheria: have a booster (or Tdap) every 10 years. Varicella vaccine: receive 2 doses if you never had chickenpox or the varicella vaccine. Hepatitis B vaccine: receive 2, 3, or 4 doses, depending on your exact circumstances. Measles, mumps, and rubella (MMR) vaccine: receive 1 to 2 doses if you are not already immune to MMR. Your provider can tell you if you are immune. Ask your provider about the human papillomavirus (HPV) vaccine if: You have not received the HPV vaccine in the past You have not completed the full vaccine series (you should catch up on this shot) Ask your provider if you should receive other immunizations if you have certain health problems that increase your risk for some diseases such as pneumonia. INFECTIOUS DISEASE SCREENING Women who are sexually active should be screened for chlamydia and gonorrhea up until age 25. Women 25 years and older should be screened for chlamydia and gonorrhea if at high risk. Screening for hepatitis C: All adults ages 18 to 79 should get a one-time test for hepatitis C. people should be screened at every . Screening for human immunodeficiency virus (HIV): All people ages 15 to 65 should get a one-time test for HIV. Depending on your lifestyle and medical history, you may also need to be screened for infections such as syphilis and HIV, as well as other infections. PHYSICAL EXAM All adults should visit their provider from time to time, even if they are healthy. The purpose of these visits is to: Screen for disease Assess your risk of future medical problems Encourage a healthy lifestyle Update your vaccinations and other preventive care services Maintain a relationship with a provider in case of an illness Your height, weight, and BMI should be checked at every exam. During your exam, your provider may ask you about: Depression and anxiety Diet and exercise Alcohol and tobacco use Safety issues, such as using seat belts, smoke detectors, and intimate partner violence Your medicines and risk for interactions SKIN SELF-EXAM Your provider may check your skin for signs of skin cancer, especially if you're at high risk, such as if you: Have had skin cancer before Have close relatives with skin cancer Have a weakened immune system OTHER SCREENING Talk with your provider about colon cancer screening if you have a strong family history of colon cancer or polyps, or if you have had inflammatory bowel disease or polyps yourself. Routine bone density screening of women under 40 is not recommended.
--- OUTSIDE RECORDS SUMMARY | 2024-05-18 07:55 | XMS_ITS | Encounter Summary ---
Author Organization [facility] Address [address] [place] [address] Phone Care Team Providers Care Organ Installer Name Role Phone Carmen Fay NP Primary Care Provider [phone] Encounter Details Date Type Department Care Team (Late st Contact Info) Description 11/29/2016 Conversion Encounter [facility] - [address] [address] Social History Tobacco Use Types Packs/Day Years Used Date Smoking Tobacco: Never Comments:Never smoker Comments Unknown Sex and Gender Information Value Date Recorded Sex Assigned at Not on file Legal Sex Female 4:57 PM EDT Gender Identity Not on file Sexual Orientation Not on file documented as of this encounter Plan of Treatment Not on file documented as of this encounter Visit Diagnoses Not on filedocumented in this encounter Care Teams Organ Installer Relationship Specialty Start Date End Date Carmen Fay NP PCP - General Pediatrics 10/13/17 documented as of this encounter
--- OUTSIDE RECORDS SUMMARY | 2024-05-18 07:55 | XMS_ITS | Encounter Summary ---
Author Organization [facility] Address [address] [place], [place] [id number] Phone Care Team Providers Care Underwriting Director Name Role Phone Carmen Fay NP Primary Care Provider [phone] Encounter Details Date Type Department Care Team (Late st Contact Info) Description 11/24/2015 Documentation [facility] Family Medicine [address] [place] [address] Family Medicine, Physician [facility] [place] [address] Social History Tobacco Use Types Packs/Day Years [...] on filedocumented in this encounter Care Teams Underwriting Director Relationship Specialty Start Date End Date Carmen Fay NP PCP - General Pediatrics 10/13/17 documented as of this encounter
--- OUTSIDE RECORDS SUMMARY | 2024-05-18 07:55 | XMS_ITS | Clinical Summary ---
Author Organization [facility] Address [address] [place] [address] Phone Care Team Providers Care Foster Care Worker Name Role Phone aCrmen Fay EVI Primary Care Provider [phone] Allergies No known active allergies Medications No known medications Active Problems Problem Noted Date Diagnosed Date Atopic dermatitis 11/23/2015 Overview (09/15/2017): Sensitive skin care. Immunizations Name Administration Dates Next Due DTaP 5 09/03/2002, 9,04/27/1998,02/23,1997 H1N1 05/09/2009 HPV Vaccine 9 Valent 09/19/2017,11/26/2016,11/22 Hep A, ped/adol 11/23/2015,11/15/2014 Hep B, ped/adol 04/27/1998,1997,1997 Hib (PRP-T) 10/28/1998, 9,02/23/1998,12/13 IPV 09/03/2002,02/23/1998,1997 Influenza, injectable, quadrivalent 02/28/2016 Influenza, injectable, quadr ivalent, preservative free 01/20/2018 Influenza, injectable, trivalent 02/04/2009 MMR 08/29/2001,07/29/1998 Meningococcal Conj (Menactra) MCV4P 11/23/2015,0 10/24/2009 OPV 02/08/1999 Tdap 10/24/2009 Varicella 08/25/2008,08/30/1999 Family History Relation Name Status Comments Father Alive Father: Alive a nd well Mother Alive Mother: Alive a nd well Other Family history of Asthma, No family history of Seizure disorder, No family history of Strabismus, No family history of *CVA/Stroke, No family history of Developmental dislocation of hip, Family history of Diabetes mellitus, Family history of Elevated cholesterol, No family history of *Heart Disease, No family history of Migraines, Family history of cancer, skin, No family history of *Thrombophilia, Family history of Deafness, No family history of ADD/ADHD, Family history of Obesity, No family history of Hyperlipidemia, No family history of *Sudden /OR under 55 Sister 1 Alive Sister: Alive a nd well, Alive and well Sister 2 Alive Sister: Alive a nd well, Alive and well Social History Tobacco Use Types Packs/Day Years Used Date Smoking Tobacco: Never Smokeless Tobacco: Never Comments:Never smoker Alcohol Use Standard Drinks/Week Comments No 0 (1 standard drink = 0.6 oz pur e alcohol) Comments Unknown Sex and Gender Information Value Date Recorded Sex Assigned at Not on file Legal Sex Female 4:57 PM EDT Gender Identity Not on file Sexual Orientation Not on file Last Filed Vital Signs Vital Sign Reading Time Taken Comments Blood Pressure 118/75 04/25/2018 9:21 AM EST Pulse 82 04/25/2018 9:21 AM EST Temperature 37.1 ??C (98.7 ??F) 04/25/2018 9:21 AM ES T Respiratory Rate - - Oxygen Saturation - - Inhaled Oxygen Concentration - - Weight 74.7 kg (164 lb 9.6 oz) 04/25/2018 9:21 A M EST Height 155.6 cm (5' 1.25 ) 02/14/2018 3:29 PM ED T Body Mass Index 30.85 02/14/2018 3:29 PM EDT Plan of Treatment Health Maintenance Due Date Last Done Comments DTaP,Tdap,and Td Vaccines (7 - Td or Tdap) 10/25/2019 10/24/2009, 09/03/2002, 02/08/1999, Additional history exists Influenza Vaccines (#1) 2023 01/21/20 18, 02/28/2016, 02/04/2009 COVID-19 Vaccine ( season) 2023 Hepatitis B Vaccines Completed 04/27/1998, 1997, 1997 HIB Vaccines Completed 10/28/1998, 04/15, 02/23/1998, Additional history exists MMR Vaccines Completed 08/29/2001, 07/29/1998 IPV Vaccines Completed 09/03/2002, 01/14, 02/23/1998, Additional history exists Varicella Vaccines Completed 08/25/2008, 08/30/1999 Hepatitis A Vaccines Completed 11/23/2015, 11/16/19 15 Meningococcal Vaccine Completed 11/23/2015, 010 HPV Vaccines Completed 09/19/2017, 11/13, 11/23/2015 Men B Vaccine Aged Out No longer elig ible based on patient's age to complete this topic Pneumococcal Vaccine Aged Out No long er eligible based on patient's age to complete this topic Insurance [facility] Care Teams Foster Care Worker Relationship Specialty Start Date End Date Carmen Fay NP PCP - General Pediatrics 10/13/17
--- OUTSIDE RECORDS SUMMARY | 2024-05-18 07:55 | XMS_ITS | Clinical Summary ---
Author Organization [facility] Address [address] [place] [address] Care Team Providers Care Director Digital Advertising Name Role Phone Unavailable Primary Care Provider Unavailabl e Social History Tobacco Use Types Packs/Day Years Used Date Smoking Tobacco: Never Assessed Sex and Gender Information Value Date Recorded Sex Assigned at Not on file Gender Identity Not on file Sexual Orientation Not on file Plan of Treatment Health Maintenance Due Date Last Done Comments HPV Vaccines (1 - 3-dose series) 2012 DTaP,Tdap,and Td Vaccines (1 - Tdap) 2016 Hepatitis B Vaccines (1 of 3 - 19+ 3-dose series) 2016 Cervical Cancer Screening: P ap Smear 2018 COVID-19 Vaccine ( - 2023-2 5 season) 2023 Influenza Vaccine (#1) 2023 Depression Screening 02/08/2024 HIV Screening 02/08/2024 Hepatitis C Screening 02/08/2024 Social Influencers of Health Screening 02/08/2024 HIB Vaccines Aged Out No longer eligi ble based on patient's age to complete this topic Hepatitis A Vaccines Aged Out No long er eligible based on patient's age to complete this topic IPV Vaccines Aged Out No longer eligi ble based on patient's age to complete this topic MMR Vaccines Aged Out No longer eligi ble based on patient's age to complete this topic Meningococcal ACWY Vaccine Aged Out N o longer eligible based on patient's age to complete this topic Pneumococcal Vaccine: Pediat rics (0 to 5 Years) and At-Risk Patients (6 to 64 Years) Aged Out No longer eligible b ased on patient's age to complete this topic RSV Immunization Patients Un elías 20 months Aged Out No longer eligible b ased on patient's age to complete this topic Varicella Vaccines Aged Out No longer eligible based on patient's age to complete this topic
[2024-05-18 08:01] VITALS: BP 118/62; PULSE 65; O2SAT 99; BMI 32.0
== END 2024-05-18 08:31 | disposition home or self-care (01) ==
PROVIDERS: PCP Nurse Practitioner Family; Visit Provider Nurse Practitioner Family
DX: Z00.00 Encounter for general adult medical examination without abnormal findings (principal); R77.8 Other specified abnormalities of plasma proteins; R74.8 Abnormal levels of other serum enzymes; Z80.8 Family history of malignant neoplasm of other organs or systems; D22.9 Melanocytic nevi, unspecified; Z12.4 Encounter for screening for malignant neoplasm of cervix; Z23 Encounter for immunization; Z87.892 Personal history of anaphylaxis

== ENCOUNTER → 2024-05-18 07:53 | Outpatient (BNVA) | payer OTHER, SELFPAY | PROVIDERS: PCP Nurse Practitioner Family; Visit Provider Nurse Practitioner Family | DX: Z00.00 Encounter for general adult medical examination without abnormal findings (principal); Z23 Encounter for immunization; R77.8 Other specified abnormalities of plasma proteins; R74.8 Abnormal levels of other serum enzymes; D22.9 Melanocytic nevi, unspecified; J45.909 Unspecified asthma, uncomplicated; Z87.892 Personal history of anaphylaxis; Z80.8 Family history of malignant neoplasm of other organs or systems | CPT/HCPCS: 90471; 90656; 96127; 96160 ==

== ENCOUNTER 2024-07-17 13:02 | Outpatient (AMB) | payer OTHER, SELFPAY ==
--- NOTE | 2024-07-17 13:03 | A.OFFPC_ITS ---
Intake Visit Reasons: Fill out a form Intake Note: telehealth to 0fill out form Piece Cutter Required: No Allergies coconut Allergy (Severe, Uncoded 07/17/24 14:49) Anaphylaxis Tree nuts Allergy (Severe, Uncoded 07/17/24 14:49) tonsil swelling Medication List - Last Reconciled 07/17/24 by HAYDEE Hernandez albuterol sulfate 90 mcg/actuation 2 puffs inhalation Q6H PRN epinephrine (EpiPen 2-Raza) 0.3 mg (0.3 mL) IM Q10M PRN 30 days Tobacco use date assessed: 05/18/24 Dental Screening Dental Screen Date: 05/18/24 HPI HPI Comments 2 History of Present Illness0 Details 28 y/o with with elevated CPK, LFTs, Ald olase and low C3 complement, 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 - No concerns were noted about the patie nt's physical or mental health. - Immunizations include recent flu Tdap November 07, 2019, valid for 10 years. - Discussion involved the requirement fo r [id number] documentation, which is in process. - Forms completed and will be mailed to patient per request. I have no reservations about this for her and her . The note documents an accurate account of the telehealth visit conducted via phone. The patient has been explained that this is an interactive (audio/video) telehealth encounter and what that consists of. The patient understands and wishes to proceed. [employer] platform was used. Total time spent caring for the patient today was 10 minutes. This includes time spent before the visit reviewing the chart, time spent during the visit, and time spent after the visit on documentation, reviewing laboratory results, diagnostic imaging, medications, performing a medically necessary evaluation, counseling on diagnoses, care coordination, ordering appropriate tests, ordering appropriate medications, review of tests performed by other providers, reporting test results with the patient, communication with other healthcare providers. [facility] Medical History No pertinent past medical history Surgical History No pertinent past surgical history Family History Mother No problems noted. Father No problems noted. Social History Household Members: Spouse Housing: Apartment Alcohol intake: current Alcohol intake frequency: a few times a month Alcohol type: wine Patient Tobacco Use Status: Never used Tobacco e-Cigarette/Vaping Use: Never Used service: No Current occupational status: employed Current occupation: occupational therapist Cognitive needs: No Hearing needs: No Vision needs: No Questionnaire Thrive Questionnaire Date Thrive assessed: 05/17/24 I am a: Patient What is your living situation today?: I have a steady place to live Within the past 12 months, did the food you bought not last and you didn't have the money to get more?: Never true Within the past 12 months, did you worry whether your food would run out before you got money to buy more?: Never true Do you have trouble paying for medicines?: No Do you have trouble getting transportation to medical appointments?: No Do you have trouble paying your heating and electricity bill?: No Do you have trouble taking care of your child, family member or friend?: No Do you have trouble with day-to-day activities such as bathing, preparing meals, shopping, managing finances, etc.?: No Are you currently unemployed and looking for a job?: No Are you interested in more education?: No Please select the resources that you would like help with: None Currently or been in a relationship where the following occur: No concerns reported THRIVE Score: 0 EVELIA-7 AMB Questionnaire EVELIA-7 Date EVELIA - 7 assessed: 05/18/24 Source: Developed by Drs. Fransisco Alcantar, Whit Corona, Brent Morales and colleagues, with an educational jacobo from [employer]. Physical exam (Primary Care) Tobacco/Smoking Status: Tobacco use Status Tobacco use date assessed 05/18/24 07/17/24 13:04 Patient Tobacco Use Status Never used Tobacco 07/17/24 13:04 e-Cigarette/Vaping Use Never Used 07/17/24 13:04 Thrive Assessment: Date of Thrive Assessment Date Thrive assessed 05/17/24 07/17/24 13:04 Currently or been in a relationship where the following occur: No concerns reported Telehealth Telehealth Telehealth [facility]: [facility] Location of provider rendering services: practice address Location of patient: address on file Patient Identification confirmed using: Name, : Yes Telehealth method: voice only Patient verbally consented to treatment: Yes Patient verbally consented to billing insurance company: Yes Patient informed of any privacy concerns related to visit: Yes Minutes spent on Phone/Video with Pt.: 4 Coding Level of Care Code Est Pt Level 1 (89167) Complex EM visit Add On G2211 Diagnoses Encounters for administrative purpose Z02.9 Encounter for adoption services Z02.82 Assessment & Plan Assessment & Plan (1) Encounters for administrative purpose: Code(s): Z02.9 - Encounter for administrative examinations, unspecified (2) Encounter for adoption services: Code(s): Z02.82 - Encounter for adoption services Plan .
--- OUTSIDE RECORDS SUMMARY | 2024-07-17 14:53 | XMS_ITS | Clinical Summary ---
Author Organization [facility] Address [address] [place] [address] Phone Care Team Providers Care Outside Production Inspector Name Role Phone [place] EVI Primary Care Provider [phone] Allergies No known active allergies Medications No known medications Active Problems Problem Noted Date Diagnosed Date Atopic dermatitis 11/23/2015 Overview (09/15/2017): Sensitive skin care. Immunizations Immunization Administration Dates Next Due DTaP 5 09/03/2002, [...] of Hyperlipidemia, No family history of *Sudden /[place] under 55 Sister 1 Alive Sister: Alive [...] patient's age to complete this topic Insurance [facility] [place] [address] Care Teams Outside Production Inspector Relationship Specialty Start Date End Date Carmen Fay NP PCP - General Pediatrics 10/13/17
--- OUTSIDE RECORDS SUMMARY | 2024-07-17 14:53 | XMS_ITS | Clinical Summary ---
Author Organization [facility] it Address [address] [place] [address] Care Team Providers Care Licensed Staff Mft Name Role Phone Unavailable Primary Care Provider Unavailabl e Social History Tobacco Use Types Packs/Day Years Used Date Smoking Tobacco: Never Assessed Comments Unknown Sex and Gender Information Value Date Recorded Sex Assigned at Not on file Legal Sex Female 2:03 AM EST Gender Identity Not on file Sexual Orientation [...] patient's age to complete this topic Meningococcal B Vacine Aged Out No lo nger eligible based on patient's age to complete [...]
--- OUTSIDE RECORDS SUMMARY | 2024-07-17 14:53 | XMS_ITS | Encounter Summary ---
Author Organization [facility] Address [address] [place] [address] Phone Care Team Providers Care Mechanical Adjuster Name Role Phone Carmen Fay NP Primary Care Provider [phone] Encounter Details Date Type Department Care Team (Late st Contact Info) Description 11/29/2016 Conversion Encounter [facility] - [address] [address] Social History Tobacco Use Types Packs/Day Years [...] on filedocumented in this encounter Care Teams Mechanical Adjuster Relationship Specialty Start Date End Date Carmen Fay NP PCP - General Pediatrics 10/13/17 documented as of this encounter
--- OUTSIDE RECORDS SUMMARY | 2024-07-17 14:53 | XMS_ITS | Encounter Summary ---
Author Organization [facility] Address [address] [place], [place] [id number] Phone Care Team Providers Care Board Runner Name Role Phone Carmen Fay NP Primary Care Provider [phone] Encounter Details Date Type Department Care Team (Late st Contact Info) Description 11/24/2015 Documentation [facility] Family Medicine [address] [place] [address] Family Medicine, [facility] [place] [address] Social History Tobacco Use Types Packs/Day Years [...] on filedocumented in this encounter Care Teams Board Runner Relationship Specialty Start Date End Date Carmen Fay NP PCP - General Pediatrics 10/13/17 documented as of this encounter
== END 2024-07-17 16:31 | disposition home or self-care (01) ==
LOC: HO.HMCFM 13:02
PROVIDERS: PCP Nurse Practitioner Family; Visit Provider Nurse Practitioner Family
DX: Z02.9 Encounter for administrative examinations, unspecified (principal); Z02.82 Encounter for adoption services

== ENCOUNTER → 2024-07-17 13:02 | Outpatient (BNVA) | payer OTHER, SELFPAY | PROVIDERS: PCP Nurse Practitioner Family; Visit Provider Nurse Practitioner Family | DX: Z02.82 Encounter for adoption services (principal) | CPT/HCPCS: 99211 ==